=== PATIENT | male | born 1945 | race Caucasian/White ===

== ENCOUNTER 2022-12-02 08:25 | Outpatient (REF) | payer MEDICARE, OTHER, SELFPAY ==
--- NOTE | ~2022-12-02 | XR_ITS ---
EXAMINATION: XR KNEE, LEFT XR KNEE AP STANDING CLINICAL INFORMATION: Bilateral knee pain. COMPARISON: None available. TECHNIQUE: Lateral and axial views of the left knee were obtained. AP bilateral standing view of the knees was obtained. FINDINGS: Bony alignment and mineralization are normal. There is moderate asymmetric narrowing of the bilateral medial joint space compartments. The lateral joint space compartments and the left patellofemoral compartment are well-maintained. There is mild peripheral osteophyte formation of the left patellofemoral compartment. No fracture, dislocation or joint effusion is seen. There is no significant varus or valgus configuration. No foreign body. XR/XR knee LT 2V IMPRESSION: 1. There is moderate osteoarthritic change of the medial joint space compartment of the left knee, and mild osteoarthritic change is seen of the patellofemoral compartment. 2. There is moderate osteoarthritic change of the medial joint space compartment of the right knee. 3. No fracture, dislocation or joint effusion is seen bilaterally.
--- NOTE | ~2022-12-02 | XR_ITS ---
EXAMINATION: XR KNEE, LEFT XR KNEE AP STANDING CLINICAL INFORMATION: Bilateral knee pain. COMPARISON: None available. TECHNIQUE: Lateral and axial views of the left knee were obtained. AP bilateral standing view of the knees was obtained. FINDINGS: Bony alignment and mineralization are normal. There is moderate asymmetric narrowing of the bilateral medial joint space compartments. The lateral joint space compartments and the left patellofemoral compartment are well-maintained. There is mild peripheral osteophyte formation of the left patellofemoral compartment. No fracture, dislocation or joint effusion is seen. There is no significant varus or valgus configuration. No foreign body. XR/XR knee standing BI IMPRESSION: 1. There is moderate osteoarthritic change of the medial joint space compartment of the left knee, and mild osteoarthritic change is seen of the patellofemoral compartment. 2. There is moderate osteoarthritic change of the medial joint space compartment of the right knee. 3. No fracture, dislocation or joint effusion is seen bilaterally.
== END 2022-12-02 08:26 | disposition home or self-care (01) ==
LOC: HO.HOSX 08:25
PROVIDERS: Visit Provider Physician Assistant
DX: M17.12 Unilateral primary osteoarthritis, left knee (principal)
CPT/HCPCS: 73560; 73565; 99202